=== PATIENT | male | born 1965 | race Caucasian/White ===

== ENCOUNTER → 2024-01-06 | Outpatient (CLI) | payer BC ==
--- NOTE | 2024-01-08 10:06 | US ---
EXAMINATION TYPE: US scrotum with doppler. Grayscale and color Doppler Duplex imaging performed of ktai rojo scrotum. DATE OF EXAM: 01/06/2024 COMPARISON: NONE CLINICAL INDICATION: Male, 58 years old with history of N50.9 DISORDER OF MALE GENITAL ORGANS, UNSPEC IFIED; Palpable area lateral left testicle x a couple weeks. Hx vasectomy EXAM MEASUREMENTS: TESTICLES: Right Testicle: 3.8 x 2.9 x 1.8 cm Left Testicle: 4.0 x 2.6 x 1.8 cm EPIDIDYMIS HEAD: Right Epididymis: 1.1 x 1.1 x 0.8 cm. *Anechoic area seen within: 0.5 x 0.3 x 0.3 cm. Left Epididymis: 1.1 x 1.4 x 1.2 cm Doppler performed to assess for testicular vascularity; good bilateral color flow and waveforms are s een. Presence of hydroceles: Yes, right: 2.5 x 1.2 x 0.6 cm. Left: 2.4 x 2.4 x 0.8 cm. Presence of varicoceles: Vessels on the right measure up to 3 mm. *More prominent vessels on the le ft measure up to 4 mm. *Tubular complex structure seen lateral to right testicle/right epididymal body-question prominent sp ermatic cord. IMPRESSION: 1. Bilateral hydroceles. 2. Bilateral varicoceles. 3. Right epididymal cyst.
== END | disposition home or self-care (01) ==
LOC: RADUSWWP 14:52
PROVIDERS: ATTEND Family Medicine
DX: N43.3 Hydrocele, unspecified (principal); I86.1 Scrotal varices; N50.3 Cyst of epididymis
CPT/HCPCS: 76870; 93975